=== PATIENT | male | born 1995 | race Caucasian/White ===

== ENCOUNTER 2021-10-06 09:55 | Emergency (ER) | payer OTHER ==
[~2021-10-06] VITALS: Ht 180.3 cm; Wt 99.1 kg
[2021-10-06] MEDS ORDERED: IVER1TAB PO ×2 (13:05→13:06)
[2021-10-06 13:06] VITALS: BP 133/83
== END 2021-10-06 13:36 | disposition home or self-care (01) ==
LOC: M ED 09:55
DX: B86 Scabies (principal); Z88.0 Allergy status to penicillin